=== PATIENT | female | born 1965 | race Caucasian/White ===

== ENCOUNTER 2023-05-18 04:29 | Emergency (ER) | payer MEDICAID ==
[~2023-05-18] VITALS: Ht 149.9 cm; Wt 81.0 kg
[2023-05-18 04:50] VITALS: O2SAT 99
[2023-05-18 05:27] LABS: ALANINE AMINOTRANSFERASE 192 IU/L (10-49); ASPARTATE AMINOTRANSFERASE 202 IU/L (<34); BILIRUBIN TOTAL 1.8 mg/dL (0.1-1.0); CALCIUM 8.9 mg/dL (8.7-10.4); CARBON DIOXIDE 28 mEq/L (21-32); CHLORIDE 104 mEq/L (98-107); CREATININE 0.7 mg/dL (0.6-1.0); GLUCOSE 133 mg/dL (70-105); POTASSIUM 3.8 mEq/L (3.5-5.1); PROTEIN TOTAL 7.5 g/dL (6.0-8.3); SODIUM 140 mEq/L (136-145); TROPONIN I HIGH SENSITIVITY 4 ng/L (3.0-34); UREA NITROGEN BLOOD 10 mg/dL (9-23)
[2023-05-18 05:46] LABS: BASOPHILS % 0.6 % (0.0-2.0); HEMATOCRIT. 40.3 % (36.0-48.0); HEMOGLOBIN. 13.7 g/dL (12.0-16.0); LYMPHOCYTES % 11.4 % (20.0-50.0); MEAN CORPUSCULAR HEMOGLOBIN 31.1 pg (28.0-32.0); MEAN CORPUSCULAR HGB CONC 33.9 g/dL (31.0-37.0); MEAN CORPUSCULAR VOLUME 91.6 fL (81.0-99.0); MONOCYTES % 6.6 % (2.0-8.0); NEUTROPHILS % 80.4 % (40.0-76.0); PLATELET 462 x1000/uL (130-400); RED BLOOD CELL COUNT 4.39 mill/uL (4.2-5.4); RED CELL DISTRIBUTION WIDTH 13.8 % (11.6-14.6)
[2023-05-18 05:54] LABS: INR 0.9; PARTIAL THROMBOPLASTIN TIME 30.8 sec (23.4-31.0); PROTHROMBIN TIME 9.7 sec (9.6-11.0)
[2023-05-18] MEDS ORDERED: KETOROLAC 30MG/ML VIAL IV ONE (11:45)
[2023-05-18 12:10] LABS: CLARITY URINE CLEAR (CLEAR); COLOR URINE DARK YELLOW (YELLOW); GLUCOSE URINE NEGATIVE (NEGATIVE); KETONES URINE NEGATIVE (NEGATIVE); LEUKOCYTE ESTERASE URINE NEGATIVE (NEGATIVE); NITRITE URINE NEGATIVE (NEGATIVE); OCCULT BLOOD URINE NEGATIVE (NEGATIVE); PROTEIN URINE TRACE (NEGATIVE); SPECIFIC GRAVITY URINE 1.014 (1.005-1.030)
[2023-05-18 12:14] VITALS: BP 196/69
[2023-05-18 13:50] LABS: BACTERIA URINE 1+; SQUAMOUS EPITHELIAL CELL URINE 1+ /lpf (RARE/1+)
[2023-05-18] MEDS ORDERED: IOHEXOL-300 100 ML BOTTLE ONE (13:51)
[2023-05-18 13:52] LABS: RBC URINE 0-2 /hpf (0-2); WBC URINE NONE SEEN /hpf (0-2)
[2023-05-18] MEDS ORDERED: AMLO5TAB88 MT (14:51)
[2023-05-18] MEDS ORDERED: LISI10TA26 MT (14:51)
[2023-05-18 15:14] VITALS: PULSE 96; RESP 18; TEMP 97.6
== END 2023-05-18 15:19 | disposition home or self-care (01) ==
LOC: ER 04:29
DX: K80.20 Calculus of gallbladder without cholecystitis without obstruction (principal); I10 Essential (primary) hypertension; R74.01 Elevation of levels of liver transaminase levels; Z98.890 Other specified postprocedural states
CPT/HCPCS: 80053; 81003; 81025; 83880; 83690; 85025; 85610; 85730; 84484; 36415; 71045; 74177; 76700; 93005; 96374; 99285; Q9967; J1885; Z7610 ×2

== ENCOUNTER 2025-02-02 06:39 | Emergency (ER) | payer MEDICAID, OTHER ==
[~2025-02-02] VITALS: Ht 165.1 cm; Wt 76.0 kg
[~2025-02-02 06:39] MED LIST: AMLO5TAB88 MT; LISI10TA26 MT
[2025-02-02 06:50] VITALS: O2SAT 99
[2025-02-02] MEDS: IBUPROFEN 600MG TABLET PO ONE (07:32)
[2025-02-02] MEDS ORDERED: CYCL10TA21 MT (08:55)
[2025-02-02] MEDS ORDERED: IBUP-2029 MT (08:55)
[2025-02-02 09:01] VITALS: BP 182/79; PULSE 61; RESP 18; TEMP 36.8; O2SAT 99
== END 2025-02-02 11:02 | disposition home or self-care (01) ==
LOC: ER 06:39
DX: R51.9 Headache, unspecified (principal); M54.50 Low back pain, unspecified; M25.562 Pain in left knee; M25.511 Pain in right shoulder; I10 Essential (primary) hypertension; Z79.899 Other long term (current) drug therapy; Z98.890 Other specified postprocedural states
CPT/HCPCS: 72100; 73030; 73562; 99284